=== PATIENT | female | born 1985 | race Caucasian/White ===

== ENCOUNTER 2017-12-08 15:49 | Emergency (ER) | payer OTHER ==
[~2017-12-08] VITALS: Ht 167.6 cm; Wt 108.9 kg
[~2017-12-08 15:49] MED LIST: APAP500 PO; ASPIR 8181 MG PO; ECOTRIN325 MG PO; FLEXERIL PO
[2017-12-08] MEDS ORDERED: BLEPH-105 ML OPHTHALMIC (16:07)
== END 2017-12-08 16:13 | disposition home or self-care (01) ==
LOC: M.ERS 15:49
DX: H10.89 Other conjunctivitis (principal); A49.9 Bacterial infection, unspecified

== ENCOUNTER 2018-01-15 22:18 | Inpatient (IN) | payer OTHER ==
[~2018-01-15] VITALS: Ht 170.2 cm; Wt 115.7 kg
[~2018-01-15 22:18] MED LIST changes: +BLEPH-105 ML OPHTHALMIC
[2018-01-15 22:32] VITALS: BP 171/115
[2018-01-15 22:44] LABS: ABSOLUTE BASOPHILS 0.1 thou/uL (0.0-0.2); ABSOLUTE EOSINOPHILS 0.2 thou/uL (0.0-0.7); ABSOLUTE LYMPHOCYTES 4.9 thou/uL (0.8-5.3); ABSOLUTE MONOCYTES 1.6 thou/uL (0.0-1.2); ABSOLUTE NEUTROPHILS 8.4 thou/uL (1.6-8.1); HEMATOCRIT 44.4 % (37.0-47.0); HEMOGLOBIN 14.7 gm/dL (12.0-15.0); LYMPHOCYTES 32.1 %; MCH 27.2 pg (26.0-34.0); MCHC 33.1 g/dL (28.0-37.0); MCV 82.1 fL (80.0-100.0); MONOCYTES 10.5 %; MPV 7.2 fl. (7.2-11.1); NUCLEATED RBCS 0 /100WBC; PLATELET COUNT* 311 thou/uL (150-400); POLYS 55.4 %; RDW-CV 12.6 % (10.5-14.5); WBC 15.1 thou/uL (4.0-11.0)
[2018-01-15 22:48] LABS: URINE BLOOD TRACE (Negative); URINE CLARITY CLEAR; URINE COLOR YELLOW; URINE GLUCOSE-RANDOM NEGATIVE (Negative); URINE KETONES NEGATIVE (Negative); URINE LEUKOCYTES-REFLEX NEGATIVE (Negative); URINE NITRITE-REFLEX NEGATIVE (Negative); URINE PROTEIN NEGATIVE (Negative); URINE SPECIFIC GRAVITY >= 1.030 (1.005-1.030); URINE UROBILINOGEN 0.2 E.U./dl (0.2-1.0)
[2018-01-15 22:49] LABS: URINE BILIRUBIN 1+ (Negative)
[2018-01-15 22:51] LABS: ICTOTEST (BILI CONFIRMATORY) Negative (Negative)
[2018-01-15 23:04] LABS: ALBUMIN 3.9 g/dL (3.4-5.0); CALCIUM 9.5 mg/dL (8.5-10.1); CREATININE 0.8 mg/dL (0.6-1.3); POTASSIUM 3.6 mmol/L (3.5-5.1); TOTAL BILIRUBIN 0.6 mg/dL (<0.1-1.0); TOTAL PROTEIN 7.9 g/dL (6.4-8.2)
[2018-01-16 01:39] VITALS: BP 138/82
[2018-01-16 01:45] VITALS: BP 124/74
--- NOTE | 2018-01-16 01:45 | NUR ---
ALERT AND ORIENTED X4 FEMALE ADMITTED TO BED 113 BY WHEELCHAIR FROM ER IN STABLE CONDITION. ADMISSION ROUTINES IN PROGRESS. CONTINUE TO MONITOR.
--- NOTE | 2018-01-16 05:35 | NUR ---
PATIENT HAS REMAINED ALERT AND ORIENTED X 4 FROM ARRIVAL. ZOFRAN PROVIDED X 1. RESTING QUIETLY ON HOURLY ROUNDS. NPO. IVF'S PER ORDERS. SURGICAL CONSULT THIS AM. CONTINUE TO MONITOR.
[2018-01-16 08:00] VITALS: BP 129/78
[2018-01-16 09:21] LABS: ALBUMIN 3.6 g/dL (3.4-5.0); CALCIUM 8.9 mg/dL (8.5-10.1); CREATININE 0.8 mg/dL (0.6-1.3); POTASSIUM 3.9 mmol/L (3.5-5.1); TOTAL BILIRUBIN 0.8 mg/dL (<0.1-1.0); TOTAL PROTEIN 7.2 g/dL (6.4-8.2)
[2018-01-16 12:00] VITALS: BP 118/68; BP 122/68; BP 123/72
[2018-01-16 20:30] VITALS: BP 126/79
--- NOTE | 2018-01-16 21:42 | NUR ---
ASSUMED CARES OF PT AT 0700. PT IN BED, BED IN LOW LOCKED POSITION. CALL BUTTON AND PERSONAL ITEMS IN PT REACH. PT USES CALL BUTTON APPROPRIATELY. PT A&O X4, HRRR PER AUSCULTATION, LCTAB, AFEBRILE, PERRLA, SKIN INTACT, PULSES RADIAL AND PEDAL WNL. NO EDEMA NOTED. RIGHT AC IV PATENT TO FLUIDS, NS/100 ML/HR. VSS ON RA, PAIN CONTROLLED WITH MORPHINE IVP, WELL TOLERATED. ZOFRAN IVP HELPS TO CONTROL NAUSEA PER PT STATEMENT. HOURLY ROUNDING COMPLETED. PT TO HAVE CHOLECYSECTOMY TOMORROW FOR GALL STONES, CONSENT SIGNED. PT UP INDEPENDENT TO BATHROOM. CLEAR LIQUID DIET, NPO AT 0000 TONIGHT. REPORT TO PRINTED CIRCUIT BOARD DRAFTER FOR CONTINUED CARES. PT PLEASANT, COOPERATIVE.
[2018-01-17 00:23] VITALS: BP 141/92
[2018-01-17 04:12] LABS: HEMATOCRIT 37.5 % (37.0-47.0); MCH 27.3 pg (26.0-34.0); MCV 82.9 fL (80.0-100.0); MPV 7.5 fl. (7.2-11.1); RBC 4.52 mil/uL (4.20-5.00); RDW-CV 12.5 % (10.5-14.5); WBC 9.6 thou/uL (4.0-11.0)
[2018-01-17 04:14] VITALS: BP 140/66
[2018-01-17 04:38] LABS: HEMOGLOBIN 12.4 gm/dL (12.0-15.0)
[2018-01-17 04:39] LABS: ALBUMIN 3.2 g/dL (3.4-5.0); CALCIUM 7.8 mg/dL (8.5-10.1); CREATININE 0.7 mg/dL (0.6-1.3); MAGNESIUM 1.9 mg/dL (1.8-2.4); POTASSIUM 3.7 mmol/L (3.5-5.1); TOTAL BILIRUBIN 0.7 mg/dL (<0.1-1.0); TOTAL PROTEIN 6.4 g/dL (6.4-8.2)
[2018-01-17 06:18] VITALS: BP 123/75; BP 140/66
--- NOTE | 2018-01-17 06:33 | NUR ---
Alert and oriented x 4. Up independently in her room. She is voiding adequately. She's nothing by mouth since midnight. She's had nausea med x 3 and pain med x 3 this shift. New IV started in left hand at 2114, 20 gauge. She is voiding well. She has slept well.
[2018-01-17 09:18] VITALS: BP 134/67
[2018-01-17 20:15] VITALS: BP 127/67
[2018-01-18 00:12] VITALS: BP 97/47
[2018-01-18 04:00] VITALS: BP 97/56
--- NOTE | 2018-01-18 07:03 | NUR ---
ALERT AND ORIENTED X4. LAP SITES X4 DRY AND INTACT OVER ABDOMEN INCISION. AVELINO DRAIN PATENT. USED IV NAUSEA AND PAIN MEDICATION TO HELP CONTROL NAUSA AND PAIN DURING NIGHT. TOOK SIPS OF CLEAR LIQUIDS THIS AM. CALL LIGHT WITHIN REACH. VOIDED X2 LAST NIGHT.
[2018-01-18 08:10] VITALS: BP 101/51
[2018-01-18 16:55] VITALS: BP 97/62
--- NOTE | 2018-01-18 19:01 | NUR ---
PATIENT REMAINED ALERT AND ORIENTED X'S 4. VITAL SIGNS AND SPO2 STABLE. IV CLEAN, FLUIDS INFUSING. PAIN WELL CONTROLLED WITH PAIN MEDS. PATIENT WALKED HALLS A FEW TIMES TODAY. NURSE EDUCATED PATIENT ON AVELINO DRAIN, PATIENT DEMONSTRATED PROPER USE. TOLERATED DIET, NO NAUSEA AND VOMITING. COMPLETED HOURLY ROUNDING. CALL LIGHT WITHIN REACH. WILL CONTINUE TO MONITOR.
[2018-01-18 22:00] VITALS: BP 128/84
[2018-01-19 00:19] VITALS: BP 108/58
[2018-01-19 04:04] VITALS: BP 100/55
--- NOTE | 2018-01-19 07:11 | NUR ---
ALERT AND ORIENTED. UP AD YADIRA IN ROOM. USED IV PAIN MEDICATION X1 LAST NIGHT TO HELP WITH ABD PAIN. DRESSINGS X4 ON ABDOMEN CLEAN DRY AND INTACT. AVELINO DRAIN PATENT AND ABLE TO EMPTY WITHOUT DIFFICULTY. NAUSEA MEDICATION GIVEN X1 WITH ANTIBIODIC. CALL LIGHT WITHIN REACH.
[2018-01-19 09:12] VITALS: BP 110/60
[2018-01-19 11:29] VITALS: BP 110/60
[2018-01-19] MEDS ORDERED: PHENERGAN 25 MG25 M1 PO (11:46)
[2018-01-19] MEDS ORDERED: FLAGYL500 MG PO (11:47)
[2018-01-19] MEDS ORDERED: CIPRO500 MG PO (11:48)
[2018-01-19] MEDS ORDERED: HYDROCODONE-AP1 EAC6 PO (11:48)
--- NOTE | 2018-01-19 13:07 | NUR ---
ASSUMED CARE OF PATIENT AFTER MORNING REPORT. ALERT AND ORIENTED X4. VSS ON ROOM AIR. FLUIDS AND ANTIBIOTICS INFUSED ORDERED. MINIMAL COMPLAINTS OF PAIN, MANAGED WITH MEDICATION. PATIENT READY TO DISCHARGE THIS MORNING. MARIBELL SIGNED OFF WELL DR ROJAS. PATIENT DISCHARGED AY 1220 WITH FAMILY, VIA AMBULATION. ALL PERSONAL BELONGINGS, PRESCRIPTIONS AND DISCHARGE INFORMATION SENT WITH PATIENT UPON DISCHARGE.
--- NOTE | 2018-01-28 14:40 | OP ---
[address] [address] OPERATIVE REPORT Name: ROXANNA GARZA Room: [address] IN .R.#: [id number] Admission: 01/16/18 Attend Phys: Dorian Florence MD Discharge: 01/19/18 Date of : 83 Report #: [id number] THIS REPORT FOR: //name// CC: Dorian Florence [facility] physician/PCP DICTATED BY: Scott Diaz DO DATE OF SERVICE: 01/17/2018 PREOPERATIVE DIAGNOSES: Acute cholecystitis with cholelithiasis. POSTOPERATIVE DIAGNOSES: Acute on chronic cholecystitis with cholelithiasis. SURGEON: Mónica Veras DO. GROUNDS FOREMAN: Michael Diaz, PGY-3. ASSISTANTS: Bobby Edmonds, PGY1. OPERATION PERFORMED: Laparoscopic cholecystectomy and placement of 15-Kittitian AVELINO drain. ANESTHESIA TYPE: General and local. ESTIMATED BLOOD LOSS: 20 mL. SPECIMEN REMOVED: Gallbladder. COMPLICATIONS: None. COMMENTS: The patient had a significantly distended gallbladder with purulent bile and very large gallstones. We did place a AVELINO drain at the completion of the case. The patient was returned to the PACU in stable condition and will be allowed to recover there. After recovery, she will be transported back to her room. DESCRIPTION OF PROCEDURE: After the appropriate consents were obtained, the patient was taken to the operating room, laid on supine position. She had SCDs placed on bilateral lower extremities. A safety strap placed across her lap. All lines were placed by anesthesia. She had a right arm tucked at her side and left arm placed out. The patient was then sedated and intubated by anesthesia without difficulty. Her abdomen was then exposed and prepped and draped in standard sterile fashion. A timeout was performed to correctly identify the patient and procedure. We started by injecting some 0.5% Marcaine in the supraumbilical site at the presumed site prior mid[place]. [place] [id number] OPERATIVE REPORT Name: ROXANNA GARZA Room: [address] IN [facility].#: [id number] Admission: 01/16/18 Attend Phys: Dorain Florence MD Discharge: 01/19/18 Date of : 83 Report #: [id number] with a small midline incision where Paulina trocar will be placed. We made this incision using a #11 blade scalpel. We dissected down through the subcutaneous tissue using electrocautery and blunt dissection with S retractors. Once the S retractors dissected down to the level of the anterior abdominal wall fascia, the fascia was then grasped and elevated between 2 Ovi clamps. Once elevated, it was incised using electrocautery. A hemostat was used to bluntly enter the abdominal cavity. A finger was used to sweep the anterior abdominal wall to ensure there were no germania-incisional adhesions and none are present. I would place 2 separate 0 Vicryl sutures to act as stay sutures for Paulina trocar in the fascia. We inserted our Paulina trocar into the abdomen and insufflated the belly to 15 mmHg. We secured our Paulina trocar by previously placed 0 Vicryl sutures. We inserted our 10-mm camera, did an initial inspection in the 4 quadrants of the abdomen. Upon initial entry into the abdomen, the patient had notably hugely distended gallbladder with omental adhesions. There were no other abnormal findings during the initial inspection. We then placed our 11 mm trocar under direct visualization and subxiphoid port placement. Using a blunt grasper, we were able to elevate the gallbladder and it was significantly large and distended. At that point, we asked for a needle aspiration device. We then placed our 2 right lateral abdominal port sites under direct visualization as well. The gallbladder was elevated using a blunt grasper to hold retraction. The gallbladder was unable to be grasped due to its significant distention. We used the aspiration needle to aspirate bile from the gallbladder to help relieve some of the tension and unable to grasp it. The bile was purulent in nature. Once decompressed, we were able to grasp it with a locking grasper. The gallbladder was elevated and retracted anteriorly and cephalad. We did place another 5-mm port on the lateral right abdomen under direct visualization at this time. This allowed us to help with retraction. With the gallbladder elevated, we took down the attachments to the omentum and towards the stomach. This was done with blunt dissection as well as with electrocautery, staying high up on the gallbladder to ensure that we were away from all structures. Once we were able to visualize Tavo's pouch, it was grasped and retracted laterally. We were able to incise the peritoneum overlying Tavo's pouch and dissected our structures out using blunt dissection. We were easily able to visualize the cystic duct and the cystic artery as well as Calot's node running directly over the artery. Once our duct and artery were completely dissected out, we did dissect down our cystic plate on the posterior aspect of the duct and the artery in order to get our critical view. Once our critical view was obtained, we were able to visualize one cystic duct and one cystic artery going directly into the gallbladder. These structures were isolated and clipped with a clipper plier. There were 3 clips placed on the duct proximally and 1 clip distally. There were 2 clips placed on the artery proximally and 1 clip distally. Once these structures were clipped, they were incised using laparoscopic scissors. The posterior aspect was then dissected out further and there was a branching artery off of the cystic artery, which was dissected out and again clipped with 2 clips proximally and 1 clip distally. This was also incised using endoscopic scissors. The gallbladder was then removed very tediously [place] [id number] OPERATIVE REPORT Name: ROXANNA GARZA Room: [address]#: [id number] Admission: 01/16/18 Attend Phys: Dorian Florence MD Discharge: 01/19/18 Date of : 83 Report #: [id number] Once again, the gallbladder was very large and very distended with multiple huge gallstones. This made our dissection somewhat challenging, but we were able to remove the gallbladder from the liver bed without much difficulty. Any bleeding that was occurring from the liver bed was adequately controlled using electrocautery. The gallbladder once completely removed was placed within an EndoCatch pouch. There was a small amount of bile that was spilled during this procedure secondary to the aspiration needle that we used at the initial portion of the case. This bile was washed thoroughly and irrigated adequately and then suctioned away. We irrigated until the suction ran clear. We did lift the liver once again and inspected our clips to ensure that there was no oozing or bleeding and none was present. Our clips appeared to be in place and intact. After we completely suctioned all the free fluid wave, we did decide to place a 15-Kittitian AVELINO drain secondary to the amount of purulent bile that was present within the gallbladder. There was also a significant amount of edema that was noted along the gallbladder wall as well as a very thickened gallbladder wall. After a 15-Kittitian AVELINO drain was placed at the inferior edge of the liver and along Morison's pouch, we removed our trocars under direct visualization to ensure there was no bleeding and none was present. The gas was turned off and abdomen was allowed to desufflate. We removed the gallbladder from the supraumbilical incision site, but we did have to extend the fascia with some in order to remove the gallbladder. We also had to make our skin incision bigger as well to remove the gallbladder completely from the intra-abdominal cavity. We grasped the anterior abdominal wall fascia between 2 Ovi clamps and elevated it. We did place 3 separate [id number] 0 Vicryl sutures within the fascia and did achieve good approximation. The fascia was then injected with 0.5% Marcaine for further anesthesia. The subcutaneous tissue was then closed using inverted interrupted 3-0 Vicryl sutures. The skin was closed in a running fashion using 4-0 Monocryl. The remainder of the port sites were closed using 4-0 Monocryl in an inverted interrupted fashion. A AVELINO drain was sutured in using a 2-0 nylon suture. The patient's abdomen was then cleaned thoroughly and dried. We did use the remainder of the 0.5% Marcaine at the incision sites. We then placed Mastisol, Steri-Strips, and a sterile gauze on each incision and then placed a sterile Tegaderm OpSite over each. The drain site had a sponge that was placed over it, as well as a Tegaderm. The patient tolerated the procedure well and was allowed to awaken and subsequently extubated in the operating room. Our counts were correct x 2 at the end of the procedure. The patient will be allowed to recover in PACU and then subsequently transferred back to her room. If all goes well tonight and the patient does okay, then hopefully home tomorrow. Dr. Veras was present and scrubbed for the entirety of this procedure. <ELECTRONICALLY SIGNED> By: Mónica Veras DO 01/28/18 1440 1816 2028Chbill Veras DO /nt
--- NOTE | 2018-04-09 16:08 | PATH ---
[address] [address] PATHOLOGY RPT PROCEDURE Name: PHONG GARZA Room: [address] IN M.R.#: [id number] Admission: 01/16/18 Date of : 83 Discharge: 01/19/18 Report #: [id number] Path Case #: [id number] [facility] Accession Number: [id number] . 01 Material submitted: . GALLBLADDER . 01 Clinician provided ICD-10: n . 02 Diagnosis: Gallbladder: - Chronic and acute ulcerative cholecystitis with mural fibrosis, cholelithiasis, and prominent benign sentinel lymph node showing sinus histiocytosis and follicular hyperplasia. (FABIO:mgr; 01/21/18) QRQ/01/21/2018 . 02 Electronically signed: . Kimani Tan MD, Pathologist NPI- [id number] . 01 Gross description: . Received in formalin labeled "Phong Garza gallbladder" and consists of a glistening, brown, hemorrhagic, enlarged and intact gallbladder measuring 12.7 cm in length by 4.5 cm in diameter. There is a 1.2 cm lymph node candidate loosely attached to the neck. The lumen contains 3 black brown and barrel-shaped calculi averaging 3.0 cm in greatest dimension and 5 mL's of tenacious, jellylike, and brown bile. The wall ranges in thickness from 0.2 cm-0.9 cm. The mucosa is markedly roughened, focally ulcerated, trabeculated, jeronimo-schultz, and hyperemic. There are no masses identified. Prior Authorization Technician sections are submitted A1-A3. . (OMERO; 01/20/2018) JBR/JBR . 02 Pathologist provided ICD-10: K80.12 . 02 CPT . 593612 Performed at: [address] [id number] MD Edson Swanson MD Phone: [phone] Performed at: [address] [id number] [place] [address] PATHOLOGY RPT PROCEDURE Name: PHONG GARZA Room: [address] IN M.R.#: [id number] Admission: 01/16/18 Date of : 83 Discharge: 01/19/18 Report #: [id number] Path Case #: [id number] MD Kimani Tan MD Phone: [phone]
== END 2018-01-19 12:20 | disposition home or self-care (01) | DRG 418 ==
LOC: M.ERS 22:18 → M.ORTHSURG 01-16 00:38 → M.TBA-ER 01-16 00:38 → M.ORTHSURG 01-16 01:43
PROVIDERS: Internal Medicine; Physician Assistant; ADMIT Internal Medicine
PROC: 0FT44ZZ Resection of Gallbladder, Percutaneous Endoscopic Approach (ICD-10-PCS; principal; 2018-01-17)
DX: K80.12 Calculus of gallbladder with acute and chronic cholecystitis without obstruction (principal); R65.10 Systemic inflammatory response syndrome (SIRS) of non-infectious origin without acute organ dysfunction; T83.32XA Displacement of intrauterine contraceptive device, initial encounter; F17.210 Nicotine dependence, cigarettes, uncomplicated; E66.01 Morbid (severe) obesity due to excess calories; K27.9 Peptic ulcer, site unspecified, unspecified as acute or chronic, without hemorrhage or perforation; Y83.8 Other surgical procedures as the cause of abnormal reaction of the patient, or of later complication, without mention of misadventure at the time of the procedure; Z79.2 Long term (current) use of antibiotics; Z68.39 Body mass index [BMI] 39.0-39.9, adult; Z88.0 Allergy status to penicillin; Z79.899 Other long term (current) drug therapy; Y92.89 Other specified places as the place of occurrence of the external cause